=== PATIENT | male | born 1995 | race Caucasian/White ===

== ENCOUNTER 2022-04-11 13:57 | Emergency (ER) | payer SELFPAY ==
[~2022-04-11] VITALS: Ht 188 cm; Wt 88.5 kg
[2022-04-11] MEDS ORDERED: HYDR1TAB94 PO (19:39)
[2022-04-11] MEDS ORDERED: IBUP800 PO (19:39)
== END 2022-04-11 19:45 | disposition home or self-care (01) ==
LOC: ER 13:57
DX: S43.014A Anterior dislocation of right humerus, initial encounter (principal); F17.200 Nicotine dependence, unspecified, uncomplicated; X50.0XXA Overexertion from strenuous movement or load, initial encounter
CPT/HCPCS: 73030; J1170; J2405; J2704

== ENCOUNTER 2022-06-11 16:25 | Emergency (ER) | payer OTHER ==
[~2022-06-11] VITALS: Ht 185.4 cm; Wt 90.7 kg
[~2022-06-11 16:25] MED LIST: HYDR1TAB94 PO; IBUP800 PO
== END 2022-06-11 18:48 | disposition home or self-care (01) ==
LOC: ER 16:25
DX: M24.411 Recurrent dislocation, right shoulder (principal); F17.200 Nicotine dependence, unspecified, uncomplicated; X58.XXXA Exposure to other specified factors, initial encounter
CPT/HCPCS: 73020; 73030; J1885; J3010

== ENCOUNTER 2022-07-06 09:41 | Emergency (ER) | payer OTHER ==
[~2022-07-06] VITALS: Ht 185.4 cm; Wt 81.7 kg
== END 2022-07-06 11:54 | disposition home or self-care (01) ==
LOC: ER 09:41
DX: M24.411 Recurrent dislocation, right shoulder (principal); F17.200 Nicotine dependence, unspecified, uncomplicated
CPT/HCPCS: 23650; 73020; 73030; 99283-25